=== PATIENT | male | born 1980 | race Caucasian/White ===

== ENCOUNTER 2016-06-09 22:38 | Emergency (ER) | payer MEDICAID | END 2016-06-09 23:00 | disposition left against medical advice (07) | LOC: D.ER 22:38 | DX: Z02.9 Encounter for administrative examinations, unspecified (principal) ==

== ENCOUNTER 2018-04-06 23:19 | Emergency (ER) | payer SELFPAY ==
[~2018-04-06] VITALS: Ht 182.9 cm; Wt 72.7 kg
[2018-04-06 23:27] VITALS: Ht 182.9 cm; Wt 72.7 kg
[2018-04-07] MEDS ORDERED: AUGMENTIN 875-11 TAB PO (01:21)
[2018-04-07] MEDS ORDERED: ALBUTEROL SULF8.5 GM INH (01:21)
[2018-04-07] MEDS ORDERED: TESSALON PERLE100 MG PO (01:22)
[2018-04-07 01:27] VITALS: BP 120/71
== END 2018-04-07 01:53 | disposition home or self-care (01) ==
LOC: D.ER 23:19
DX: J40 Bronchitis, not specified as acute or chronic (principal); H66.92 Otitis media, unspecified, left ear

== ENCOUNTER 2018-12-17 10:42 | Emergency (ER) | payer OTHER ==
[~2018-12-17] VITALS: Ht 182.9 cm; Wt 68.0 kg
[~2018-12-17 10:42] MED LIST: ALBUTEROL SULF8.5 GM INH; AUGMENTIN 875-11 TAB PO; TESSALON PERLE100 MG PO
[2018-12-17 10:45] VITALS: BP 153/102; Ht 182.9 cm; Wt 68.0 kg
[2018-12-17] MEDS ORDERED: ERYTHROMYCIN OPT1 GM EACH EYE (13:31)
== END 2018-12-17 13:50 | disposition home or self-care (01) ==
LOC: D.ER 10:42
DX: S05.01XA Injury of conjunctiva and corneal abrasion without foreign body, right eye, initial encounter (principal); X58.XXXA Exposure to other specified factors, initial encounter